=== PATIENT | female | born 1945 | race Caucasian/White ===

== ENCOUNTER → 2019-07-02 | Outpatient (CLI) | payer MEDICARE ==
[~2019-07-02] MED LIST: IOPAMIDOL 370 MG/ML 200 ML INFUS..BTL INJ ONE; NKM; SODIUM CHLORIDE 0.9% 100 ML 100 ML ONE
[2019-07-02 10:24] LABS: BLOOD UREA NITROGEN 14 mg/dL (7-26); BUN/CREATININE RATIO 19 (6-25); CREATININE, SERUM 0.75 mg/dL (0.57-1.11); EST GLOMERULAR FILTRATION RATE > 60 ML/MIN (60-)
--- NOTE | 2019-07-02 12:17 | Diagnostic Imaging Report ---
ABDOMINOPELVIC CT WITH CTA RUNOFF PROTOCOL WITH IV CONTRAST. INDICATION: Left SFA occlusion COMPARISON: None. TECHNIQUE: Abdomen and pelvis and bilateral lower extremity runoff were scanned utilizing a multidetector helical scanner from the lung base to the toes after administration of IV contrast. Coronal and sagittal reformations were obtained. CTA runoff protocol was performed. Scan was performed during arterial phase. 3D post-processing of the images was performed, and the post-processed images were used in interpretation. IV CONTRAST: 100mL of Isovue 370 ORAL CONTRAST: None RADIATION DOSE: Total DLP: 752.9 mGy*cm Dose modulation, iterative reconstruction, and/or weight based adjustment of the mA/kV was utilized to reduce the radiation dose to as low as reasonably achievable. FINDINGS: VESSELS: There are mild calcified and noncalcified atherosclerotic plaques in the aorta and its major branches. There is no evidence of a flap within the aorta to suggest a dissection. No abdominal aortic aneurysm. Atherosclerotic plaque at the celiac origin results in moderate ostial narrowing. The SMA and DARIUS are patent without hemodynamically significant narrowing. There is a single left renal artery and 2 right renal arteries, all of which are patent. Right lower extremity: The common femoral artery, superficial femoral artery, and popliteal artery are patent, and there is a patent 3-vessel run-off to the mid calf. Runoff vessels are not well opacified more distally. There is minimal atherosclerotic disease of the common iliac, external iliac, and common femoral arteries without significant luminal narrowing. Left lower extremity: The left external iliac artery and common femoral artery are patent with mild atherosclerotic disease and no significant luminal narrowing . The left superficial femoral artery is diminutive from its origin and is occluded at the level of the mid thigh with distal reconstitution just before exiting the adductor canal. The left popliteal artery is widely patent. Patent 3 vessel runoff to the level of the mid calf. More distal runoff vessels are not well opacified. CHEST: Bibasilar subsegmental atelectasis. Scattered groundglass opacity and smooth interlobular septal thickening can be seen with mild pulmonary edema. ABDOMEN: No focal liver lesion. No splenomegaly. The pancreas, adrenals, kidneys appear unremarkable. The pelvic organs appear unremarkable. No lymphadenopathy. No abnormal bowel wall thickening. No bowel obstruction. Normal appendix. BONES: No acute osseous injury. No suspicious lytic or blastic lesions. Mild lumbar spine degenerative changes. Grade 1 anterolisthesis at L4-5. 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 The left popliteal artery is widely patent. Patent bilateral 3 vessel runoff to the level of the midcalf. More distal runoff vessels bilaterally are not well opacified. Moderate celiac origin stenosis. Signed by: Puja Adamson MD on 07/02/2019 12:14 PM
== END ==
LOC: CT 09:34
PROVIDERS: ATTEND Internal Medicine Cardiovascular Disease
DX: I70.213 Atherosclerosis of native arteries of extremities with intermittent claudication, bilateral legs (principal); R07.2 Precordial pain; R09.89 Other specified symptoms and signs involving the circulatory and respiratory systems
CPT/HCPCS: 36415; 75635; 82565; 84520; Q9967